=== PATIENT | female | born 1975 | race Caucasian/White ===

== ENCOUNTER 2020-09-18 08:14 | Outpatient (CLI) | payer SELFPAY ==
--- NOTE | 2020-09-18 08:30 | MM_ITS ---
WS: [id number] BILATERAL DIGITAL SCREENING MAMMOGRAPHY WITH CAD CLINICAL INFORMATION: Z12.39 - Encounter for other screening for malignant neoplasm of breast HISTORY: Screening mammogram. No current complaints. COMPARISON: October 13, 2018 TECHNIQUE: Bilateral CC and MLO views. FINDINGS: The breasts are composed of heterogeneous fibroglandular density tissue, which can limit the detectio n of small underlying mass lesions. No suspicious mass, asymmetry, calcifications, or architectural d istortion. No evidence of malignancy. Punctate calcifications. MM/[place] [id number] IMPRESSION: BI-RADS: 2-Benign FOLLOW UP: 1 Year Follow-up Recommend return to annual screening mammography.
[2020-09-18 09:33] LABS: Chol HDL Ratio 3.05 mg/dL (0.0-4.40); Cholesterol 201 mg/dL (0-200); Free T4 Free Thyroxine 1.34 ng/dL (0.82-1.77); HDL Cholesterol 66 mg/dL (60-100); LDL Cholesterol Calculated 115 mg/dL (50-129); LDL HDL Ratio 1.74 RATIO (0.00-3.22); T3 Free 3.7 PG/ML (2.0-4.4); Thyroid Stimulating Hormone 7.25 uIU/mL (0.27-4.20); Triglycerides 100 mg/dL (0-150)
[2020-09-18 09:54] LABS: Estmated Average Glucose 97
== END 2020-09-18 08:15 | disposition home or self-care (01) ==
LOC: RADSHAW 08:18
PROVIDERS: PCP Family Medicine; Visit Provider Obstetrics & Gynecology
DX: Z12.31 Encounter for screening mammogram for malignant neoplasm of breast (principal); Z00.00 Encounter for general adult medical examination without abnormal findings; E03.8 Other specified hypothyroidism; E06.3 Autoimmune thyroiditis
CPT/HCPCS: 77067; 80061; 83036; 84439; 84443; 84481

== ENCOUNTER 2021-03-13 07:48 | Outpatient (CLI) | payer SELFPAY ==
--- NOTE | 2021-03-13 07:54 | US_ITS ---
WS: [id number] ULTRASOUND THYROID TECHNIQUE: Ultrasound of the thyroid. CLINICAL INFORMATION: MULTINODULAR GOITER COMPARISON: Ultrasound October 13, 2018 FINDINGS: Thyroid: Enlarged thyroid with diffuse heterogeneous echotexture consistent with multinodular goiter. No dominant nodules to target for biopsy. Findings are similar in appearance compared to 2019. Thyro id size is similar to previous. Right thyroid lobe: 5.7 cm x 1.7 cm x 2.4 cm Left thyroid lobe: 5.6 cm x 1.8 cm x 1.9 cm. Isthmus: 1.3 mm. Cervical lymphadenopathy: None. US/US thyroid [id number] IMPRESSION: Enlarged thyroid compatible with multinodular goiter is stable since 2019.
== END 2021-03-13 07:49 | disposition home or self-care (01) ==
PROVIDERS: PCP Family Medicine; Visit Provider Family Medicine
DX: E04.2 Nontoxic multinodular goiter (principal); E04.8 Other specified nontoxic goiter
CPT/HCPCS: 76536

== ENCOUNTER → 2021-08-22 10:21 | Outpatient (BNVA) | payer BC, MEDICAID, SELFPAY | PROVIDERS: PCP Family Medicine; Visit Provider Registered Nurse Neonatal Intensive Care | DX: M79.641 Pain in right hand (principal) | CPT/HCPCS: 73130 ==

== ENCOUNTER → 2021-10-10 14:32 | Outpatient (BNVA) | payer BC, MEDICAID, SELFPAY | PROVIDERS: PCP Family Medicine; Visit Provider Family Medicine | DX: Z00.00 Encounter for general adult medical examination without abnormal findings (principal); Z13.220 Encounter for screening for lipoid disorders; E55.9 Vitamin D deficiency, unspecified; E03.9 Hypothyroidism, unspecified | CPT/HCPCS: 80053; 80061; 82306; 83036; 84439; 84443; 84481; 85025 ==

== ENCOUNTER → 2022-09-28 12:10 | Outpatient (BNVA) | payer BC, MEDICAID, SELFPAY | PROVIDERS: PCP Family Medicine; Visit Provider Internal Medicine | DX: E07.9 Disorder of thyroid, unspecified (principal) | CPT/HCPCS: 36415; 84439; 84443; 84480 ==

== ENCOUNTER 2022-11-02 07:37 | Outpatient (CLI) | payer BC, MEDICAID, SELFPAY ==
--- NOTE | 2022-11-02 07:45 | US_ITS ---
WS: [email or web address] THYROID ULTRASOUND HISTORY: thyroid dysfunction COMPARISON: 03/13/2021, 08/07/2015 Right lobe: 2.0 cm x 2.4 cm x 5.7 cm (w x ap x l). Volume: 13.7 cm3. Mildly enlarged thyroid. Heterogeneous appearance of the gland. Small nodules and echogenic fibrous s epta. No large nodule. No increased vascularity. Left lobe: 1.6 cm x 2.2 cm x 4.5 cm (w x ap x l). Volume: 8.5 cm3. Slightly enlarged gland. Nodules with echogenic fibrous septa. No increased vascularity. Isthmus: 1.2 cm. US/US thyroid [id number] IMPRESSION: 1. Enlarged heterogeneous thyroid. Probably from healed Nya's thyroiditi s. 2. No discrete or suspicious thyroid nodules identified.
== END 2022-11-02 07:38 | disposition home or self-care (01) ==
LOC: RAD 07:38
PROVIDERS: PCP Family Medicine; Visit Provider Internal Medicine
DX: E07.9 Disorder of thyroid, unspecified (principal); E04.9 Nontoxic goiter, unspecified; N39.0 Urinary tract infection, site not specified
CPT/HCPCS: 76536; 81000

== ENCOUNTER 2022-12-09 12:20 | Outpatient (CLI) | payer BC, MEDICAID, SELFPAY ==
[2022-12-09 13:39] LABS: Free T4 Free Thyroxine 1.27 ng/dL (0.82-1.77); Thyroid Stimulating Hormone 2.48 uIU/mL (0.27-4.20)
[2022-12-10 07:39] LABS: T3 Total 131 ng/dL (76-181)
== END 2022-12-09 12:21 | disposition home or self-care (01) ==
PROVIDERS: PCP Family Medicine; Visit Provider Internal Medicine
DX: E07.9 Disorder of thyroid, unspecified (principal)
CPT/HCPCS: 36415; 84439; 84443; 84480

== ENCOUNTER 2023-03-19 12:35 | Outpatient (CLI) | payer BC, MEDICAID, SELFPAY ==
[2023-03-19 13:59] LABS: Free T4 Free Thyroxine 1.29 ng/dL (0.82-1.77); Thyroid Stimulating Hormone 0.68 uIU/mL (0.27-4.20)
[2023-03-20 08:00] LABS: T3 Total 149 ng/dL (76-181)
== END 2023-03-19 12:36 | disposition home or self-care (01) ==
LOC: LAB 12:38
PROVIDERS: PCP Family Medicine; Visit Provider Internal Medicine
DX: E06.3 Autoimmune thyroiditis (principal)
CPT/HCPCS: 36415; 84439; 84443; 84480

== ENCOUNTER 2023-03-30 08:36 | Outpatient (CLI) | payer BC, MEDICAID, SELFPAY ==
--- NOTE | 2023-03-30 08:39 | MM_ITS ---
WS: [email or web address] BILATERAL 3D TOMOSYNTHESIS DIGITAL SCREENING MAMMOGRAPHY WITH CAD CLINICAL INFORMATION: Z12.39 - Encounter for other screening for malignant neop... HISTORY: Screening mammogram. No current complaints. COMPARISON: 2020 TECHNIQUE: Bilateral CC and MLO views. FINDINGS: The breasts are composed of heterogeneous fibroglandular density tissue, which can limit the detectio n of small underlying mass lesions. No suspicious mass, asymmetry, calcifications, or architectural d istortion. No evidence of malignancy. IMPRESSION: MM/[place] [id number] BI-RADS: 1-Negative FOLLOW UP: 1 Year Follow-up Recommend return to annual screening mammography.
== END 2023-03-30 08:37 | disposition home or self-care (01) ==
LOC: RAD 08:37
PROVIDERS: PCP Family Medicine; Visit Provider Nurse Practitioner Women's Health
DX: Z12.39 Encounter for other screening for malignant neoplasm of breast (principal); E55.9 Vitamin D deficiency, unspecified; Z51.81 Encounter for therapeutic drug level monitoring; Z13.220 Encounter for screening for lipoid disorders; M25.50 Pain in unspecified joint; M70.71 Other bursitis of hip, right hip; M79.641 Pain in right hand
CPT/HCPCS: 77063; 77067; 80053; 80061; 82306; 85025; 86618; 86666; 86757

== ENCOUNTER 2023-04-27 09:28 | Outpatient (CLI) | payer BC, MEDICAID, SELFPAY ==
--- NOTE | 2023-04-27 10:00 | US_ITS ---
WS: [email or web address] THYROID ULTRASOUND HISTORY: E04.1 - Nontoxic single thyroid nodule COMPARISON: 11/02/2022 Right lobe: 1.9 cm x 2.4 cm x 5.1 cm (w x ap x l). Volume: 12.0 cm3. Enlarged very heterogeneous thyroid. Thyroid is measured just slightly smaller than on the prior exam ination. Vascularity appears decreased. There are fibrous septa throughout the nodular lobe. No discr ete mass. Left lobe: 1.7 cm x 1.8 cm x 4.8 cm (w x ap x l). Volume: 7.5 cm3. Diffuse heterogeneous echotexture. There are nodules in fibrous septa throughout the gland. No discre te nodule. Vascularity may have slightly decreased. Isthmus: 0.9 cm. Heterogeneous enlarged nodular. IMPRESSION: 1. Enlarged nodular thyroid with fibrous septa. Most consistent with Nya's thyroiditis. The vas cularity and the gland size have very minimally decreased since the prior study. 2. No discrete nodules.
== END 2023-04-27 09:29 | disposition home or self-care (01) ==
LOC: RAD 09:28
PROVIDERS: PCP Family Medicine; Visit Provider Internal Medicine
DX: E04.1 Nontoxic single thyroid nodule (principal)
CPT/HCPCS: 76536

== ENCOUNTER → 2023-05-06 13:19 | Outpatient (BNVA) | payer BC, MEDICAID, SELFPAY | PROVIDERS: PCP Family Medicine; Referring Provider Family Medicine; Visit Provider Student in an Organized Health Care Education/Training Program | DX: M79.641 Pain in right hand (principal); M65.9 Synovitis and tenosynovitis, unspecified | CPT/HCPCS: 36415; 73130; 80053; 85651; 86140; 86160; 86162; 86200; 86235; 86255; 86376; 86431 ==

== ENCOUNTER → 2023-06-01 12:16 | Outpatient (BNVA) | payer BC, MEDICAID, SELFPAY | PROVIDERS: PCP Family Medicine; Visit Provider Family Medicine | DX: R76.8 Other specified abnormal immunological findings in serum (principal); M25.50 Pain in unspecified joint; R30.0 Dysuria; Z79.899 Other long term (current) drug therapy | CPT/HCPCS: 87086 ==

== ENCOUNTER 2023-06-18 12:47 | Outpatient (CLI) | payer BC, MEDICAID, SELFPAY ==
[2023-06-18 14:23] LABS: Free T4 Free Thyroxine 1.71 ng/dL (0.82-1.77); Thyroid Stimulating Hormone 0.19 uIU/mL (0.27-4.20)
[2023-06-20 06:09] LABS: T3 Total 191 ng/dL (76-181)
== END 2023-06-18 12:48 | disposition home or self-care (01) ==
LOC: LAB 12:49
PROVIDERS: PCP Family Medicine; Visit Provider Internal Medicine
DX: E03.8 Other specified hypothyroidism (principal); E06.3 Autoimmune thyroiditis
CPT/HCPCS: 84439; 84443; 84480

== ENCOUNTER 2023-08-05 16:10 | Outpatient (CLI) | payer BC, MEDICAID, SELFPAY ==
[2023-08-05 17:04] LABS: Basophils # 0.1 10^3/uL (0.0-0.1); Basophils % 0.7 %; Eosinophils # 0.1 10^3/uL (0.0-0.8); Eosinophils % 0.7 %; Hematocrit 38.9 % (36-47); Lymphocytes # 1.6 10^3/uL (0.8-4.8); Mean Corpuscular HGB Conc 33.7 g/dL (30-55); Mean Corpuscular Hemoglobin 30.4 pg (27-33); Mean Corpuscular Volume 90.3 fl (85-98); Mean Platelet Volume 9.3 fL (7.4-10.4); Monocytes # 0.4 10^3/uL (0.2-0.9); Monocytes % 4.8 %; Neutrophils # 6.25 10^3/uL (1.8-7.7); Neutrophils % 74.4 %; Nucleated Red Blood Cells % 0 %; Platelet Count 260 10^3/cmm (157-399); Red Blood Count 4.31 10^6/uL (3.85-5.65); Red Cell Distribution Width 11.7 % (12.1-15.1); White Blood Count 8.39 10^3/uL (3.29-11.43)
[2023-08-05 17:08] LABS: Erythrocyte Sedimentation Rate 11 mm/hr (0-15)
[2023-08-05 18:10] LABS: Alanine Aminotransferase 19 U/L (0-33); Albumin Level 4.6 g/dL (3.5-5.2); Alkaline Phosphatase 97 U/L (35-105); Aspartate Amino Transferase 17 U/L (0-32); C Reactive Protein 10.2 mg/L (0.0-4.9); Globulin 2.8 g/dL (1.3-4.6); Glomerular Filtration Rate 90.1 mL/min (90-130); Total Bilirubin 0.3 mg/dL (0.15-1.2); Total Protein 7.4 g/dL (6.6-8.7)
[2023-08-05 22:27] LABS: Hepatitis B Core AB, Total Non-Reactive (Nonreactive); Hepatitis B Surface Antigen Non-Reactive (Nonreactive); Hepatitis C Virus Antibody Non-Reactive (Nonreactive)
[2023-08-11 19:39] LABS: Mutated Citrullinated Vimentin <20 U/mL (<20)
== END 2023-08-05 16:11 | disposition home or self-care (01) ==
LOC: LAB 16:12
PROVIDERS: Absent Provider Internal Medicine; PCP Family Medicine; Visit Provider Internal Medicine Rheumatology
DX: Z11.59 Encounter for screening for other viral diseases (principal); Z79.899 Other long term (current) drug therapy; M19.90 Unspecified osteoarthritis, unspecified site
CPT/HCPCS: 36415; 80076; 82565; 83520; 85025; 85651; 86140; 86480; 86704; 86803; 87340

== ENCOUNTER 2023-08-06 11:46 | Outpatient (CLI) | payer BC, MEDICAID, SELFPAY ==
[2023-08-09 14:05] LABS: Quantiferon Mitogen 7.57 IU/mL; Quantiferon Nil 0.04 IU/mL; Quantiferon Plus TB1 0.04 IU/mL; Quantiferon TB Gold NEGATIVE (NEGATIVE)
== END 2023-08-06 11:47 | disposition home or self-care (01) ==
LOC: LAB 11:49
PROVIDERS: PCP Family Medicine; Visit Provider Internal Medicine Rheumatology
DX: Z11.1 Encounter for screening for respiratory tuberculosis (principal); Z79.899 Other long term (current) drug therapy; M19.90 Unspecified osteoarthritis, unspecified site
CPT/HCPCS: 36415; 86480

== ENCOUNTER 2023-09-09 13:04 | Outpatient (CLI) | payer BC, MEDICAID, SELFPAY ==
--- NOTE | 2023-09-09 13:09 | XR_ITS ---
WS: [email or web address] Exam: XR knee RT 3V* [id number] Date/Time of Exam: 09/09/2023 1:12 PM Reason For Exam: M06.041 - Rheumatoid arthritis without rheumatoid factor,... No fracture or dislocation noted. Articular relationships are intact. No joint effusion. Impression: Normal RIGHT knee Kellgren-Hadley Classification: 0
--- NOTE | 2023-09-09 13:09 | XR_ITS ---
WS: [email or web address] Exam: XR hand LT min 3V* [id number] Date/Time of Exam: 09/09/2023 1:12 PM Reason For Exam: M06.041 - Rheumatoid arthritis without rheumatoid factor,... Findings: No fractures, soft tissue swelling, or unusual calcifications are noted. The hand shows normal bony alignment. There is no irregularity of the bony architecture. IMPRESSION: Normal LEFT hand.
--- NOTE | 2023-09-09 13:09 | XR_ITS ---
WS: [email or web address] Exam: XR foot LT min 3V* [id number] Date/Time of Exam: 09/09/2023 1:12 PM Reason For Exam: M06.041 - Rheumatoid arthritis without rheumatoid factor,... Findings: The foot was examined in multiple views and reveals no fractures or displacements of bone. No bony a nomalies are noted. The bony elements are in adequate alignment. The joint spaces are smooth and eq uidistant. IMPRESSION: Negative LEFT foot.
--- NOTE | 2023-09-09 13:09 | XR_ITS ---
WS: [email or web address] Exam: XR shoulder RT min 2V* [id number] Date/Time of Exam: 09/09/2023 1:12 PM Reason For Exam: M06.041 - Rheumatoid arthritis without rheumatoid factor,... The projections of the shoulder reveal no fractures, anomalies, soft tissue swelling, or calcificatio ns. There is normal bony alignment. No irregularity of the bony architecture is noted. IMPRESSION: Negative RIGHT shoulder.
--- NOTE | 2023-09-09 13:09 | XR_ITS ---
WS: [email or web address] Exam: XR shoulder LT min 2V* [id number] Date/Time of Exam: 09/09/2023 1:12 PM Reason For Exam: M06.041 - Rheumatoid arthritis without rheumatoid factor,... The projections of the shoulder reveal no fractures, anomalies, soft tissue swelling, or calcificatio ns. There is normal bony alignment. No irregularity of the bony architecture is noted. IMPRESSION: Negative LEFT shoulder.
--- NOTE | 2023-09-09 13:09 | XR_ITS ---
WS: [email or web address] Exam: XR ankle LT min 3V* [id number] Date/Time of Exam: 09/09/2023 1:12 PM Reason For Exam: M06.041 - Rheumatoid arthritis without rheumatoid factor,... Findings: Multiple views of the ankle reveal no fracture or displacements of bone. No soft tissue swelling is present. There are no periosteal reactions noted. The talus and calcaneus are in adequate position. The joint space is smooth and equidistant. IMPRESSION: Negative LEFT ankle.
--- NOTE | 2023-09-09 13:09 | XR_ITS ---
WS: [email or web address] Exam: XR hand RT min 3V* [id number] Date/Time of Exam: 09/09/2023 1:12 PM Reason For Exam: M06.041 - Rheumatoid arthritis without rheumatoid factor,... Findings: No fractures, soft tissue swelling, or unusual calcifications are noted. The hand shows normal bony alignment. There is no irregularity of the bony architecture. IMPRESSION: Normal RIGHT hand.
--- NOTE | 2023-09-09 13:09 | XR_ITS ---
WS: [email or web address] Exam: XR knee LT 3V* [id number] Date/Time of Exam: 09/09/2023 1:12 PM Reason For Exam: M06.041 - Rheumatoid arthritis without rheumatoid factor,... No fracture or dislocation noted. Articular relationships are intact. No joint effusion. Impression: Normal LEFT knee Kellgren-Hadley Classification: 0
--- NOTE | 2023-09-09 13:09 | XR_ITS ---
WS: [email or web address] Exam: XR foot RT min 3V* [id number] Date/Time of Exam: 09/09/2023 1:12 PM Reason For Exam: M06.041 - Rheumatoid arthritis without rheumatoid factor,... Findings: The foot was examined in multiple views and reveals no fractures or displacements of bone. No bony a nomalies are noted. The bony elements are in adequate alignment. The joint spaces are smooth and eq uidistant. IMPRESSION: Negative RIGHT foot.
--- NOTE | 2023-09-09 13:09 | XR_ITS ---
WS: [email or web address] Exam: XR ankle RT min 3V* [id number] Date/Time of Exam: 09/09/2023 1:12 PM Reason For Exam: M06.041 - Rheumatoid arthritis without rheumatoid factor,... Findings: Multiple views of the ankle reveal no fracture or displacements of bone. No soft tissue swelling is present. There are no periosteal reactions noted. The talus and calcaneus are in adequate position. The joint space is smooth and equidistant. IMPRESSION: Negative RIGHT ankle.
[2023-09-09 13:35] LABS: Basophils % 0.5 %; Eosinophils # 0.1 10^3/uL (0.0-0.8); Eosinophils % 1.4 %; Hematocrit 36.5 % (36-47); Lymphocytes # 1.9 10^3/uL (0.8-4.8); Lymphocytes % 33.7 %; Mean Corpuscular HGB Conc 33.4 g/dL (30-55); Mean Corpuscular Hemoglobin 30.2 pg (27-33); Mean Corpuscular Volume 90.3 fl (85-98); Mean Platelet Volume 9.1 fL (7.4-10.4); Monocytes # 0.5 10^3/uL (0.2-0.9); Monocytes % 8.1 %; Neutrophils # 3.19 10^3/uL (1.8-7.7); Neutrophils % 56.1 %; Nucleated Red Blood Cells % 0 %; Platelet Count 236 10^3/cmm (157-399); Red Blood Count 4.04 10^6/uL (3.85-5.65); White Blood Count 5.69 10^3/uL (3.29-11.43)
[2023-09-09 14:02] LABS: Alanine Aminotransferase 13 U/L (0-33); Albumin Level 4.1 g/dL (3.5-5.2); Alkaline Phosphatase 88 U/L (35-105); Aspartate Amino Transferase 12 U/L (0-32); C Reactive Protein 13.2 mg/L (0.0-4.9); Free T4 Free Thyroxine 1.42 ng/dL (0.82-1.77); Globulin 2.9 g/dL (1.3-4.6); Glomerular Filtration Rate 90.1 mL/min (90-130); Thyroid Stimulating Hormone 0.23 uIU/mL (0.27-4.20); Total Bilirubin 0.2 mg/dL (0.15-1.2)
[2023-09-10 09:40] LABS: T3 Total 144 ng/dL (76-181)
== END 2023-09-09 13:05 | disposition home or self-care (01) ==
LOC: LAB 13:06
PROVIDERS: Internal Medicine Rheumatology; PCP Family Medicine; Visit Provider Internal Medicine
DX: M06.041 Rheumatoid arthritis without rheumatoid factor, right hand (principal); M06.042 Rheumatoid arthritis without rheumatoid factor, left hand; Z79.899 Other long term (current) drug therapy; E03.8 Other specified hypothyroidism; E06.3 Autoimmune thyroiditis
CPT/HCPCS: 36415; 73030; 73130; 73562; 73610; 73630; 80076; 82565; 84439; 84443; 84480; 85025; 86140

== ENCOUNTER 2023-10-01 10:47 | Outpatient (CLI) | payer BC, MEDICAID, SELFPAY ==
[2023-10-01 12:26] LABS: Free T4 Free Thyroxine 1.51 ng/dL (0.82-1.77); Thyroid Stimulating Hormone 0.18 uIU/mL (0.27-4.20)
== END 2023-10-01 10:48 | disposition home or self-care (01) ==
LOC: LAB 10:49
PROVIDERS: PCP Family Medicine; Visit Provider Internal Medicine
DX: E03.8 Other specified hypothyroidism (principal); E06.3 Autoimmune thyroiditis
CPT/HCPCS: 84439; 84443

== ENCOUNTER 2023-10-19 15:57 | Outpatient (CLI) | payer BC, MEDICAID, SELFPAY ==
[2023-10-19 17:29] LABS: Basophils # 0.1 10^3/uL (0.0-0.1); Basophils % 0.7 %; Eosinophils # 0.1 10^3/uL (0.0-0.8); Eosinophils % 1.5 %; Hematocrit 37.5 % (36-47); Lymphocytes # 2.4 10^3/uL (0.8-4.8); Lymphocytes % 35.4 %; Mean Corpuscular HGB Conc 33.6 g/dL (30-55); Mean Corpuscular Hemoglobin 31.1 pg (27-33); Mean Corpuscular Volume 92.6 fl (85-98); Mean Platelet Volume 9.1 fL (7.4-10.4); Monocytes # 0.7 10^3/uL (0.2-0.9); Monocytes % 9.7 %; Neutrophils # 3.56 10^3/uL (1.8-7.7); Neutrophils % 52.6 %; Nucleated Red Blood Cells % 0 %; Platelet Count 288 10^3/cmm (157-399); Red Blood Count 4.05 10^6/uL (3.85-5.65); Red Cell Distribution Width 12.6 % (12.1-15.1); White Blood Count 6.78 10^3/uL (3.29-11.43)
[2023-10-19 17:53] LABS: Alanine Aminotransferase 11 U/L (0-33); Albumin Level 4.5 g/dL (3.5-5.2); Alkaline Phosphatase 88 U/L (35-105); Aspartate Amino Transferase 13 U/L (0-32); C Reactive Protein 11.4 mg/L (0.0-4.9); Globulin 3.1 g/dL (1.3-4.6); Glomerular Filtration Rate 107.2 mL/min (90-130); Total Bilirubin 0.2 mg/dL (0.15-1.2); Total Protein 7.6 g/dL (6.6-8.7)
== END 2023-10-19 15:58 | disposition home or self-care (01) ==
LOC: LAB 16:00
PROVIDERS: Internal Medicine Rheumatology; PCP Family Medicine; Visit Provider Family Medicine
DX: M06.041 Rheumatoid arthritis without rheumatoid factor, right hand (principal); M06.042 Rheumatoid arthritis without rheumatoid factor, left hand; Z79.899 Other long term (current) drug therapy
CPT/HCPCS: 36415; 80076; 82565; 85025; 86140

== ENCOUNTER → 2023-12-09 11:13 | Outpatient (BNVA) | payer BC, MEDICAID, SELFPAY | PROVIDERS: PCP Family Medicine; Visit Provider Family Medicine | DX: E03.8 Other specified hypothyroidism (principal); E06.3 Autoimmune thyroiditis; M06.041 Rheumatoid arthritis without rheumatoid factor, right hand; M06.042 Rheumatoid arthritis without rheumatoid factor, left hand; Z79.899 Other long term (current) drug therapy | CPT/HCPCS: 83036; 84439; 84443; 84480 ==

== ENCOUNTER 2024-01-19 10:36 | Outpatient (CLI) | payer BC, MEDICAID, SELFPAY ==
[2024-01-19 11:13] LABS: Basophils # 0.1 10^3/uL (0.0-0.1); Basophils % 0.7 %; Eosinophils # 0.1 10^3/uL (0.0-0.8); Eosinophils % 1.5 %; Hematocrit 37.3 % (36-47); Lymphocytes % 30.2 %; Mean Corpuscular HGB Conc 33.5 g/dL (30-55); Mean Corpuscular Hemoglobin 31.9 pg (27-33); Mean Corpuscular Volume 95.2 fl (85-98); Mean Platelet Volume 8.5 fL (7.4-10.4); Monocytes # 0.6 10^3/uL (0.2-0.9); Monocytes % 9.6 %; Neutrophils # 3.87 10^3/uL (1.8-7.7); Neutrophils % 57.9 %; Nucleated Red Blood Cells % 0 %; Platelet Count 276 10^3/cmm (157-399); Red Blood Count 3.92 10^6/uL (3.85-5.65); Red Cell Distribution Width 13.1 % (12.1-15.1); White Blood Count 6.69 10^3/uL (3.29-11.43)
[2024-01-19 11:22] LABS: Erythrocyte Sedimentation Rate 5 mm/hr (0-15)
[2024-01-19 11:33] LABS: Alanine Aminotransferase 15 U/L (0-33); Albumin Level 4.2 g/dL (3.5-5.2); Alkaline Phosphatase 80 U/L (35-105); Aspartate Amino Transferase 16 U/L (0-32); Globulin 2.8 g/dL (1.3-4.6); Glomerular Filtration Rate 107.2 mL/min (90-130); Total Bilirubin 0.3 mg/dL (0.15-1.2)
== END 2024-01-19 10:37 | disposition home or self-care (01) ==
LOC: LAB 10:38
PROVIDERS: PCP Family Medicine; Visit Provider Internal Medicine Rheumatology
DX: M06.041 Rheumatoid arthritis without rheumatoid factor, right hand (principal); M06.042 Rheumatoid arthritis without rheumatoid factor, left hand; Z79.899 Other long term (current) drug therapy
CPT/HCPCS: 36415; 80076; 82565; 85025; 85651; 86140

== ENCOUNTER 2024-03-27 14:07 | Outpatient (CLI) | payer BC, MEDICAID, SELFPAY ==
[2024-03-27 14:23] LABS: Basophils # 0.1 10^3/uL (0.0-0.1); Basophils % 0.7 %; Eosinophils # 0.2 10^3/uL (0.0-0.8); Eosinophils % 2.5 %; Hematocrit 40.6 % (36-47); Lymphocytes % 39.1 %; Mean Corpuscular Hemoglobin 31.9 pg (27-33); Mean Corpuscular Volume 96.7 fl (85-98); Mean Platelet Volume 8.5 fL (7.4-10.4); Monocytes # 0.7 10^3/uL (0.2-0.9); Monocytes % 8.8 %; Neutrophils # 3.69 10^3/uL (1.8-7.7); Neutrophils % 48.6 %; Nucleated Red Blood Cells % 0 %; Platelet Count 305 10^3/cmm (157-399); Red Cell Distribution Width 12.8 % (12.1-15.1); White Blood Count 7.58 10^3/uL (3.29-11.43)
[2024-03-27 14:28] LABS: Erythrocyte Sedimentation Rate 7 mm/hr (0-15)
[2024-03-27 14:40] LABS: Alanine Aminotransferase 18 U/L (0-33); Albumin Level 4.6 g/dL (3.5-5.2); Alkaline Phosphatase 91 U/L (35-105); Aspartate Amino Transferase 15 U/L (0-32); C Reactive Protein 8.5 mg/L (0.0-4.9); Globulin 2.1 g/dL (1.3-4.6); Glomerular Filtration Rate 76.9 mL/min (90-130); Total Bilirubin 0.3 mg/dL (0.15-1.2); Total Protein 6.7 g/dL (6.6-8.7)
== END 2024-03-27 14:08 | disposition home or self-care (01) ==
LOC: LAB 14:08
PROVIDERS: PCP Family Medicine; Visit Provider Internal Medicine Rheumatology
DX: M06.041 Rheumatoid arthritis without rheumatoid factor, right hand (principal); M06.042 Rheumatoid arthritis without rheumatoid factor, left hand; Z79.899 Other long term (current) drug therapy
CPT/HCPCS: 36415; 80076; 82565; 85025; 85651; 86140

== ENCOUNTER 2024-04-03 12:06 | Outpatient (CLI) | payer BC, MEDICAID, SELFPAY ==
--- NOTE | 2024-04-03 12:08 | XRR_ITS ---
PROCEDURE INFORMATION: Exam: XR Left Tibia and Fibula Exam date and time: 04/03/2024 12:17 PM Age: 48 years old Clinical indication: Injury or trauma; Fall; Blunt trauma; Lower leg; Left; Additional info: Leg pain - left upper fibular region TECHNIQUE: Imaging protocol: Radiologic exam of the left tibia and fibula. Views: 2 views. COMPARISON: CR XR ankle LT min 3V* [id number] 09/09/2023 1:35 PM FINDINGS: Bones/joints: Normal. No fracture or dislocation. No lytic or sclerotic bone lesion. No acute osseous or joint abnormality. Soft tissues: Normal. XR/XR tibia fibula LT 2V [id number] IMPRESSION: No acute findings.
== END 2024-04-03 12:07 | disposition home or self-care (01) ==
LOC: RAD 12:07
PROVIDERS: PCP Family Medicine; Visit Provider Family Medicine
DX: M79.605 Pain in left leg (principal); E55.9 Vitamin D deficiency, unspecified; E11.9 Type 2 diabetes mellitus without complications; Z13.220 Encounter for screening for lipoid disorders
CPT/HCPCS: 73590; 80061; 82306; 83036

== ENCOUNTER → 2024-05-02 10:34 | Outpatient (BNVA) | payer BC, MEDICAID, SELFPAY | PROVIDERS: PCP Family Medicine; Visit Provider Family Medicine | DX: E03.8 Other specified hypothyroidism (principal); E06.3 Autoimmune thyroiditis | CPT/HCPCS: 84439; 84480 ==

== ENCOUNTER → 2024-05-04 08:37 | Outpatient (BNVA) | payer BC, MEDICAID, SELFPAY | PROVIDERS: PCP Family Medicine; Visit Provider Internal Medicine | DX: E03.8 Other specified hypothyroidism (principal); E06.3 Autoimmune thyroiditis | CPT/HCPCS: 84443 ==

== ENCOUNTER 2024-05-30 09:33 | Outpatient (CLI) | payer BC, MEDICAID, SELFPAY ==
--- NOTE | 2024-05-30 09:39 | XRR_ITS ---
PROCEDURE INFORMATION: Exam: XR Left Tibia and Fibula Exam date and time: 05/30/2024 9:48 AM Age: 48 years old Clinical indication: Left; Patient HX: Rheumatoid arthritis, pain in top of lt foot and lateral lower leg from knee to ankle since fall x 2 months; Additional info: Left leg pain TECHNIQUE: Imaging protocol: Radiologic exam of the left tibia and fibula. Views: 2 views. COMPARISON: CR XR tibia fibula LT 2V [id number] 04/03/2024 12:17 PM FINDINGS: Bones/joints: Alignment is within normal limits. There is no evidence of acute fracture or dislocation. No focal lytic or sclerotic lesions are seen. Soft tissues: Normal. XR/XR tibia fibula LT 2V [id number] IMPRESSION: No acute osseous abnormality
--- NOTE | 2024-05-30 09:39 | XRR_ITS ---
PROCEDURE INFORMATION: Exam: XR Left Ankle Exam date and time: 05/30/2024 9:48 AM Age: 48 years old Clinical indication: Left; Patient HX: Rheumatoid arthritis, pain in top of lt foot and lateral lower leg from knee to ankle since fall x 2 months; Additional info: Left ankle pain TECHNIQUE: Imaging protocol: Radiologic exam of the left ankle. Views: 3 or more views. COMPARISON: CR XR ankle LT min 3V* [id number] 09/09/2023 1:35 PM FINDINGS: Bones/joints: Alignment is within normal limits. There is no evidence of acute fracture or dislocation. No focal lytic or sclerotic lesions are seen. There is mild plantar calcaneal spurring Soft tissues: Normal. XR/XR ankle LT min 3V* [id number] IMPRESSION: No acute osseous abnormality
== END 2024-05-30 09:34 | disposition home or self-care (01) ==
LOC: RAD 09:34
PROVIDERS: PCP Family Medicine; Visit Provider Family Medicine
DX: M79.605 Pain in left leg (principal); M25.572 Pain in left ankle and joints of left foot; W19.XXXA Unspecified fall, initial encounter; M77.32 Calcaneal spur, left foot
CPT/HCPCS: 73590; 73610

== ENCOUNTER 2024-06-22 14:02 | Outpatient (CLI) | payer SELFPAY ==
--- NOTE | 2024-06-22 14:30 | MR_ITS ---
WS: [email or web address] MRI LEFT ANKLE WITHOUT CONTRAST. COMPARISON: Radiograph 05/30/2024 Multiplanar, multisequence imaging is performed without contrast. History: Injury 8 weeks ago. Pain in lateral ankle with instability. Normal marrow signal. There is no acute fracture or trabecular injury. Normal syndesmosis with no wid ening of the ankle joint. No osseous defect along the talar dome. There is a tiny cartilage defect me asuring 3 mm along the medial talar dome. Tiny amount of fluid in the distal central Achilles tendon. No full-thickness tear. Plantar aponeuros is is normal. High-grade tear involving the insertion site of the anterior inferior tibiofibular liga ment. There is fluid near the insertion site at the tibia. The posterior tibiofibular ligament is int act. There is fluid surrounding the anterior and posterior talofibular ligaments but no tear. Normal deltoid ligament. Normal calcaneofibular ligament. Normal sinus Tarsi. Normal peroneal tendons. Posterior tibialis tendon is normal shape and signal. Flexor digitorum and f lexor hallucis longus tendons are normal. Anterior tibialis, extensor digitorum and extensor hallucis tendons are normal. There is a small amount of fluid in the posterior recess. MR/MR ankle LT wo con* [id number] IMPRESSION: 1. The anterior talofibular ligament appears intact. There is fluid surroundin g the ligament but the ligament is well visualized. T2 hyperintensity throughou t the posterior talofibular ligament but no tear is identified. It is difficult to tear of the posterior talofibular ligament with an intact anterior talofibu lar ligament. 2. High-grade tear involving the anterior inferior tibiofibular ligament. 3. Small joint effusion and small amount of edema surrounding the ankle. Great est amount of edema is along the lateral ankle. 4. Tendons are intact. 5. No marrow edema. 6. 3 mm chondral defect medial talar dome.
[2024-06-22 14:38] LABS: Basophils # 0.1 10^3/uL (0.0-0.1); Basophils % 0.7 %; Eosinophils # 0.2 10^3/uL (0.0-0.8); Eosinophils % 2.1 %; Lymphocytes # 3.5 10^3/uL (0.8-4.8); Lymphocytes % 47.3 %; Mean Corpuscular HGB Conc 33.7 g/dL (30-55); Mean Corpuscular Volume 94.9 fl (85-98); Mean Platelet Volume 8.9 fL (7.4-10.4); Monocytes # 0.6 10^3/uL (0.2-0.9); Monocytes % 7.4 %; Neutrophils # 3.16 10^3/uL (1.8-7.7); Neutrophils % 42.2 %; Nucleated Red Blood Cells % 0 %; Platelet Count 287 10^3/cmm (157-399); Red Blood Count 3.69 10^6/uL (3.85-5.65); Red Cell Distribution Width 12.3 % (12.1-15.1); White Blood Count 7.48 10^3/uL (3.29-11.43)
[2024-06-22 14:43] LABS: Erythrocyte Sedimentation Rate 3 mm/hr (0-15)
[2024-06-22 15:08] LABS: Alanine Aminotransferase 19 U/L (0-33); Albumin Level 4.2 g/dL (3.5-5.2); Alkaline Phosphatase 79 U/L (35-105); Aspartate Amino Transferase 13 U/L (0-32); C Reactive Protein 9.6 mg/L (0.0-4.9); Creatinine Clr Calc Pharmacy 103.3568; Globulin 2.8 g/dL (1.3-4.6); Glomerular Filtration Rate 76.9 mL/min (90-130); Thyroid Stimulating Hormone 0.47 uIU/mL (0.27-4.20); Total Bilirubin 0.3 mg/dL (0.15-1.2)
[2024-06-22 16:41] LABS: Free T4 Free Thyroxine 1.51 ng/dL (0.82-1.77)
[2024-06-23 04:53] LABS: T3 Total 115 ng/dL (76-181)
== END 2024-06-22 14:03 | disposition home or self-care (01) ==
LOC: RAD 14:03
PROVIDERS: Family Provider Internal Medicine; PCP Family Medicine; Referring Provider Internal Medicine Rheumatology; Visit Provider Family Medicine
DX: M25.572 Pain in left ankle and joints of left foot (principal); E03.8 Other specified hypothyroidism; E06.3 Autoimmune thyroiditis; Z79.899 Other long term (current) drug therapy; M06.041 Rheumatoid arthritis without rheumatoid factor, right hand; M06.042 Rheumatoid arthritis without rheumatoid factor, left hand; R93.6 Abnormal findings on diagnostic imaging of limbs; S93.432A Sprain of tibiofibular ligament of left ankle, initial encounter; X58.XXXA Exposure to other specified factors, initial encounter
CPT/HCPCS: 36415; 73721; 80076; 82565; 84439; 84443; 84480; 85025; 85651; 86140

== ENCOUNTER 2024-08-15 10:40 | Outpatient (CLI) | payer BC, MEDICAID, SELFPAY | END 2024-08-15 10:41 | disposition home or self-care (01) | LOC: LAB 10:42 | PROVIDERS: Family Provider Internal Medicine; PCP Family Medicine; Visit Provider Internal Medicine | DX: E03.8 Other specified hypothyroidism (principal); E06.3 Autoimmune thyroiditis; F41.9 Anxiety disorder, unspecified; Z79.899 Other long term (current) drug therapy | CPT/HCPCS: 36415; 84439; 84443 ==

== ENCOUNTER → 2024-09-09 13:38 | Outpatient (BNVA) | payer BC, MEDICAID, SELFPAY | PROVIDERS: Family Provider Internal Medicine; PCP Family Medicine; Visit Provider Nurse Practitioner Family | DX: S30.860A Insect bite (nonvenomous) of lower back and pelvis, initial encounter (principal); W57.XXXA Bitten or stung by nonvenomous insect and other nonvenomous arthropods, initial encounter | CPT/HCPCS: 86160; 86618; 86666; 86668; 86757 ==

== ENCOUNTER 2024-10-17 14:31 | Outpatient (CLI) | payer BC, MEDICAID, SELFPAY ==
[2024-10-17 15:54] LABS: Free T4 Free Thyroxine 1.11 ng/dL (0.82-1.77); Thyroid Stimulating Hormone 1.57 uIU/mL (0.27-4.20)
[2024-10-18 08:09] LABS: T3 Total 163 ng/dL (76-181)
== END 2024-10-17 14:32 | disposition home or self-care (01) ==
LOC: LAB 14:33
PROVIDERS: Family Provider Internal Medicine; PCP Family Medicine; Visit Provider Internal Medicine
DX: E03.8 Other specified hypothyroidism (principal); E06.3 Autoimmune thyroiditis; M25.50 Pain in unspecified joint; R63.5 Abnormal weight gain; M06.041 Rheumatoid arthritis without rheumatoid factor, right hand; M06.042 Rheumatoid arthritis without rheumatoid factor, left hand
CPT/HCPCS: 36415; 84439; 84443; 84480

== ENCOUNTER 2024-11-13 12:55 | Outpatient (CLI) | payer BC, MEDICAID, SELFPAY ==
[2024-11-13 13:19] LABS: Basophils # 0.1 10^3/uL (0.0-0.1); Basophils % 0.9 %; Eosinophils # 0.1 10^3/uL (0.0-0.8); Eosinophils % 1.6 %; Hematocrit 36.7 % (36-47); Lymphocytes # 1.6 10^3/uL (0.8-4.8); Lymphocytes % 28.4 %; Mean Corpuscular Hemoglobin 32.5 pg (27-33); Mean Corpuscular Volume 98.7 fl (85-98); Mean Platelet Volume 8.6 fL (7.4-10.4); Monocytes # 0.6 10^3/uL (0.2-0.9); Monocytes % 11.3 %; Neutrophils # 3.26 10^3/uL (1.8-7.7); Neutrophils % 57.6 %; Nucleated Red Blood Cells % 0 %; Platelet Count 249 10^3/cmm (157-399); Red Blood Count 3.72 10^6/uL (3.85-5.65); Red Cell Distribution Width 13.1 % (12.1-15.1); White Blood Count 5.66 10^3/uL (3.29-11.43)
[2024-11-13 13:27] LABS: Erythrocyte Sedimentation Rate 2 mm/hr (0-15)
[2024-11-13 13:39] LABS: Alanine Aminotransferase 22 U/L (0-33); Albumin Level 4.1 g/dL (3.5-5.2); Alkaline Phosphatase 80 U/L (35-105); Aspartate Amino Transferase 17 U/L (0-32); Bilirubin Direct 0.16 mg/dL (0.00-0.30); C Reactive Protein 6.3 mg/L (0.0-4.9); Globulin 3.1 g/dL (1.3-4.6); Glomerular Filtration Rate 76.6 mL/min (90-130); Total Bilirubin 0.2 mg/dL (0.15-1.2); Total Protein 7.2 g/dL (6.6-8.7)
== END 2024-11-13 12:56 | disposition home or self-care (01) ==
LOC: LAB 12:57
PROVIDERS: Family Provider Internal Medicine; PCP Family Medicine; Visit Provider Internal Medicine Rheumatology
DX: Z79.899 Other long term (current) drug therapy (principal)
CPT/HCPCS: 36415; 80076; 82565; 85025; 85651; 86140

== ENCOUNTER 2025-04-09 15:28 | Outpatient (CLI) | payer BC, MEDICAID, SELFPAY ==
[2025-04-09 16:34] LABS: Hematocrit 35.8 % (36-47); Hemoglobin 11.90 g/dL (11.27-16.99); Mean Corpuscular HGB Conc 33.2 g/dL (30-55); Mean Corpuscular Hemoglobin 31.8 pg (27-33); Mean Corpuscular Volume 95.7 fl (85-98); Nucleated Red Blood Cells % 0 %; Platelet Count 221 10^3/cmm (157-399); Red Blood Count 3.74 10^6/uL (3.85-5.65); White Blood Count 5.17 10^3/uL (3.29-11.43)
[2025-04-09 16:59] LABS: Slide Review Slide Review Perform
[2025-04-09 17:28] LABS: Alanine Aminotransferase 26 U/L (0-33); Albumin Level 4.5 g/dL (3.5-5.2); Alkaline Phosphatase 82 U/L (35-105); Globulin 3.1 g/dL (1.3-4.6); Total Protein 7.6 g/dL (6.6-8.7)
[2025-04-09 18:31] LABS: Aspartate Amino Transferase 25 U/L (0-32)
== END 2025-04-09 15:29 | disposition home or self-care (01) ==
LOC: LAB 15:28
PROVIDERS: Family Provider Internal Medicine; PCP Family Medicine; Visit Provider Internal Medicine Rheumatology
DX: M06.041 Rheumatoid arthritis without rheumatoid factor, right hand (principal); M06.042 Rheumatoid arthritis without rheumatoid factor, left hand; Z79.899 Other long term (current) drug therapy
CPT/HCPCS: 36415; 80076; 82565; 85025; 85651; 86140